=== PATIENT | male | born 1990 | race American Indian/Alaskan Native ===

== ENCOUNTER 2020-10-20 16:10 | Emergency (ER) | payer SELFPAY ==
[2020-10-20 16:59] VITALS: BP 124/80
--- NOTE | 2020-10-20 17:15 | Emergency Department Report ---
Chief Complaint: Urogenital-Male Stated Complaint: STD CHECK UP Time Seen by Provider: 10/20/20 16:56 - HPI History of Present Illness: Patient is a 30-year-old male presents emergency room for STD check. He is currently asymptomatic. He states he received a call from his partner stating that she got diagnosed with a UTI and states that she was advised could possibly be gonorrhea chlamydia but she has not yet received her results so he reported to the emergency room for an STD panel. He is not having any symptoms vitals are normal on exam: Non toxic appearing, no acute distress atraumatic, normocephalic normal appearance of the eyes, PERRL, EOMI, no periorbital edema or ecchymosis moist mucus membranes regular heart rate and rhythm, no gallops, no rubs, no murmurs breath sounds are clear bilaterally, no w/r/r Abdomen is soft, nontender, nondistended, no guarding, no rebound, no rigidity A&O x4, no focal neuro deficit skin is warm, dry, intact Patient is presenting for an STD panel He has no symptoms at all Patient given the appropriate resources Discussed return precautions Medical screening examination performed and there is no threat to life or limb at this time - Exam Vital Signs: Vital Signs 10/20/20 16:58 Temperature 98 F Pulse Rate 70 Respiratory 16 Rate Blood Pressure 124/80 [Right] O2 Sat by Pulse 98 Oximetry MSE screening note: Focused history and physical exam performed. Due to findings the following was ordered: ED Disposition for MSE Clinical Impression: Concern about STD in male without diagnosis Disposition: DC-01 TO HOME OR SELFCARE Is pt being admited?: No Does the pt Need Aspirin: No Condition: Stable Instructions: Safe Sex Additional Instructions: Please follow-up with the clinic or the health department to receive a full STD panel. Please have any partner tested and treated as well. Avoid sexual intercourse. Return to emergency room for new or worsened symptoms. walk in clinic: [facility] in [place], [place] Address: [address] [place] [id number] Referrals: [facility] [Outside] - 2-3 Days Time of Disposition: 17:13 Print Language: MARSHALLESE
== END 2020-10-20 17:51 | disposition home or self-care (01) ==
LOC: ED 16:10
DX: Z20.2 Contact with and (suspected) exposure to infections with a predominantly sexual mode of transmission (principal)
CPT/HCPCS: 99281